=== PATIENT | female | born 1995 | race Two or more races ===

== ENCOUNTER 2023-01-05 15:34 | Emergency (ER) | payer OTHER ==
[~2023-01-05] VITALS: Ht 175.3 cm; Wt 81.6 kg
== END 2023-01-05 19:42 | disposition home or self-care (01) ==
LOC: ER 15:34
DX: N39.0 Urinary tract infection, site not specified (principal); M54.9 Dorsalgia, unspecified; R10.2 Pelvic and perineal pain